=== PATIENT | female | born 1980 | race Caucasian/White ===

== ENCOUNTER 2016-10-01 11:20 | Inpatient (IN) | payer OTHER ==
[2016-10-01] VITALS (13 sets, daily range): BP systolic 105–129; RESP 16–25; TEMP 98.2–98.3; BMI 25.8
[~2016-10-01] VITALS: Ht 162.6 cm; Wt 68.0 kg
[2016-10-01] MEDS ORDERED: SODIUM CHLORIDE 0.9% 2,000 ML ONE (13:21)
[2016-10-01] MEDS ORDERED: ONDANSETRON 4 MG VIAL ONE ×2 (13:32→14:10)
[2016-10-01] MEDS ORDERED: KETOROLAC 30 MG/ML VIAL ONE (13:32)
[2016-10-01] MEDS ORDERED: DEXTROSE 50% SYRINGE 50 ML IV PRN ×2 (14:00→14:15)
[2016-10-01] MEDS ORDERED: INSULIN DRIP 1 UNIT/ML 100 ML IV SCH ×2 (14:00→14:15)
[2016-10-01] MEDS ORDERED: SODIUM CHLORIDE 0.9% 1,000 ML ONE ×2 (14:14→15:52)
[2016-10-01] MEDS ORDERED: LOPERAMIDE 2 MG CAPSULE PO PRN (14:55)
[2016-10-01] MEDS ORDERED: SODIUM CHLORIDE 0.9% 1,000 ML IV ONE ×2 (14:55)
[2016-10-01] MEDS ORDERED: MORPHINE 2 MG/ML SYR ONE (15:25)
[2016-10-01] MEDS: SODIUM CHLORIDE 0.45% 1,000 ML IV SCH ×2 (16:33→18:29)
[2016-10-01] MEDS: FAMOTIDINE 20 MG INJ IV SCH (21:15)
[2016-10-01] MEDS: MORPHINE 2 MG/ML SYR IV PRN (21:16)
[2016-10-01] MEDS: ONDANSETRON 4 MG VIAL IV PUSH PRN (21:18)
[2016-10-01] MEDS ORDERED: D5 W/KCL 20MEQ/L 1,000 ML IV SCH (23:55)
[2016-10-02] VITALS (24 sets, daily range): BP systolic 94–127; RESP 15–24; TEMP 97.6–98.4; Ht 162.6 cm; Wt 68.0 kg
[2016-10-02] MEDS: FAMOTIDINE 20 MG INJ IV SCH ×2 (07:55→20:44)
[2016-10-02] MEDS: ONDANSETRON 4 MG VIAL IV PUSH PRN ×3 (07:55→23:04)
[2016-10-02] MEDS: MORPHINE 2 MG/ML SYR IV PRN ×4 (07:58→23:04)
[2016-10-02] MEDS ORDERED: MISSING DOSE XX ONE ×2 (08:00→09:40)
[2016-10-02] MEDS ORDERED: GLUCAGON 1 MG VIAL IM PRN (10:50)
[2016-10-02] MEDS ORDERED: DEXTROSE 50% SYRINGE 50 ML IV PRN (10:50)
[2016-10-02] MEDS: LEVEMIR INSULIN SUBQ SCH (11:47)
[2016-10-02] MEDS: BUPROPION HCL 75 MG TAB PO SCH (11:47)
[2016-10-02] MEDS ORDERED: KCL CR 10 MEQ CAP PO ONE (16:35)
[2016-10-02] MEDS: KCL CR 20 MEQ TAB PO SCH (20:45)
[2016-10-03] VITALS (16 sets, daily range): BP systolic 101–128; RESP 13–22; TEMP 97.2–98.1
[2016-10-03] MEDS: ONDANSETRON 4 MG VIAL IV PUSH PRN ×3 (07:52→20:43)
[2016-10-03] MEDS: MORPHINE 2 MG/ML SYR IV PRN ×3 (07:53→20:44)
[2016-10-03] MEDS: FAMOTIDINE 20 MG INJ IV SCH (08:07)
[2016-10-03] MEDS: LEVEMIR INSULIN SUBQ SCH ×2 (08:11→20:39)
[2016-10-03] MEDS: KCL CR 20 MEQ TAB PO SCH ×2 (09:30→20:40)
[2016-10-03] MEDS: BUPROPION HCL 75 MG TAB PO SCH (09:30)
[2016-10-03] MEDS ORDERED: PANTOPRAZOLE 20 MG TAB PO SCH (09:35)
[2016-10-03] MEDS: PANTOPRAZOLE 40 MG TAB PO SCH (09:35)
[2016-10-03] MEDS: METOCLOPRAMIDE 10 MG/2 ML VIAL IV PUSH PRN (14:08)
[2016-10-04 00:20] VITALS: BP_SYST 108; RESP 18; TEMP 97.9
[2016-10-04 03:30] VITALS: BP_SYST 115; RESP 18; TEMP 97.8
[2016-10-04] MEDS: PANTOPRAZOLE 40 MG TAB PO SCH (06:51)
[2016-10-04] MEDS: ONDANSETRON 4 MG VIAL IV PUSH PRN ×3 (06:58→19:26)
[2016-10-04] MEDS ORDERED: MISSING DOSE XX ONE ×2 (08:10→15:30)
[2016-10-04] MEDS: METOCLOPRAMIDE 10 MG/2 ML VIAL IV PUSH PRN ×3 (08:18→21:56)
[2016-10-04] MEDS: BUPROPION HCL 75 MG TAB PO SCH (08:18)
[2016-10-04] MEDS: KCL CR 20 MEQ TAB PO SCH ×2 (08:18→19:55)
[2016-10-04] MEDS: LEVEMIR INSULIN SUBQ SCH ×2 (09:08→22:18)
[2016-10-04] MEDS: SODIUM CHLORIDE 0.9% 1,000 ML IV SCH ×2 (10:16→21:54)
[2016-10-04 10:44] VITALS: BP_SYST 116; RESP 16; TEMP 98.1
[2016-10-04 15:12] VITALS: BP_SYST 119; RESP 16; TEMP 97.6
[2016-10-04 19:29] VITALS: BP_SYST 141; RESP 18; TEMP 97.9
[2016-10-04] MEDS: METRONIDAZOLE 500 MG TAB PO SCH (22:01)
[2016-10-04 23:58] VITALS: BP_SYST 118; RESP 18; TEMP 98.4
[2016-10-05] MEDS: METRONIDAZOLE 500 MG TAB PO SCH ×4 (03:00→21:06)
[2016-10-05 03:18] VITALS: BP_SYST 120; RESP 18; TEMP 97.1
[2016-10-05] MEDS: METOCLOPRAMIDE 10 MG/2 ML VIAL IV PUSH PRN ×2 (03:58→11:49)
[2016-10-05] MEDS: PANTOPRAZOLE 40 MG TAB PO SCH (06:57)
[2016-10-05 07:15] VITALS: BP_SYST 112; RESP 16; TEMP 97.9
[2016-10-05] MEDS: SODIUM CHLORIDE 0.9% 1,000 ML IV SCH (07:31)
[2016-10-05] MEDS: ONDANSETRON 4 MG VIAL IV PUSH PRN ×2 (07:31→21:08)
[2016-10-05] MEDS: BUPROPION HCL 75 MG TAB PO SCH (09:02)
[2016-10-05] MEDS: KCL CR 20 MEQ TAB PO SCH ×2 (09:02→19:37)
[2016-10-05] MEDS: LEVEMIR INSULIN SUBQ SCH ×2 (09:05→19:56)
[2016-10-05] MEDS ORDERED: MISSING DOSE XX ONE (11:30)
[2016-10-05 11:33] VITALS: BP_SYST 114; RESP 20; TEMP 97.4
[2016-10-05 15:40] VITALS: BP_SYST 112; RESP 20; TEMP 98.4
[2016-10-05] MEDS: FAMOTIDINE 20 MG TAB PO SCH (19:36)
[2016-10-05 20:42] VITALS: BP_SYST 110; RESP 20; TEMP 98
[2016-10-05 23:48] VITALS: BP_SYST 114; RESP 16; TEMP 98.2
[2016-10-06] MEDS: ONDANSETRON 4 MG VIAL IV PUSH PRN ×2 (07:37→13:23)
[2016-10-06 07:42] VITALS: BP_SYST 110; RESP 20; TEMP 97.1
[2016-10-06] MEDS: LEVEMIR INSULIN SUBQ SCH ×2 (08:36→21:17)
[2016-10-06] MEDS: KCL CR 20 MEQ TAB PO SCH (10:35)
[2016-10-06] MEDS: METRONIDAZOLE 500 MG TAB PO SCH (10:35)
[2016-10-06] MEDS: FAMOTIDINE 20 MG TAB PO SCH ×2 (10:36→21:16)
[2016-10-06] MEDS: BUPROPION HCL 75 MG TAB PO SCH (10:36)
[2016-10-06 11:44] VITALS: BP_SYST 120; RESP 20; TEMP 98.2
[2016-10-06] MEDS: VANCOMYCIN SUSP 250 MG/5 ML UDC PO SCH ×3 (13:10→21:16)
[2016-10-06 15:45] VITALS: BP_SYST 128; RESP 20; TEMP 98.6
[2016-10-06] MEDS ORDERED: PROMETHAZINE 25 MG/ML VIAL IV PRN (17:00)
[2016-10-06 19:33] VITALS: BP_SYST 114; RESP 18; TEMP 97.4
[2016-10-07] MEDS ORDERED: SALINE FLUSH 10 ML FLUSH PRN (01:20)
[2016-10-07] MEDS ORDERED: SODIUM CHLORIDE 0.9% FLUSH BAG 500 ML IV SCH (06:00)
[2016-10-07 06:35] VITALS: BP_SYST 114; RESP 18; TEMP 97.5
[2016-10-07 07:39] VITALS: BP_SYST 118; RESP 16; TEMP 97
[2016-10-07] MEDS ORDERED: SALINE FLUSH 10 ML FLUSH SCH (08:00)
[2016-10-07] MEDS: VANCOMYCIN SUSP 250 MG/5 ML UDC PO SCH ×2 (08:58→12:19)
[2016-10-07] MEDS: LEVEMIR INSULIN SUBQ SCH (08:58)
[2016-10-07] MEDS: BUPROPION HCL 75 MG TAB PO SCH (09:00)
[2016-10-07] MEDS: FAMOTIDINE 20 MG TAB PO SCH (09:00)
[2016-10-07 11:49] VITALS: BP_SYST 116; RESP 16; TEMP 96.7
[2016-10-07 12:05] VITALS: BP_SYST 116; RESP 16; TEMP 96.7
== END 2016-10-07 12:17 | disposition home or self-care (01) | DRG 371 ==
LOC: ENRESERVDT → ENRESERVTM → ER 11:20 → EMR 14:14 → CCU 16:02 → 4NT 10-03 16:38
PROVIDERS: ADMIT Hospitalist; ATTEND Hospitalist
CPT/HCPCS: 71010; 76700; 80048; 80053; 80076; 81003; 82947; 83735; 85025; 86704; 86705; 86706; 86708; 86709; 87045; 87046; 87088; 87493; 94799; 96361; 96365; 96366; 96374; 96375; 96376; 99233; 99238